=== PATIENT | female | born 1975 | race Two or more races ===

== ENCOUNTER 2019-05-20 14:48 | Emergency (ER) | payer OTHER ==
[~2019-05-20] VITALS: Ht 170.2 cm; Wt 77.1 kg
== END 2019-05-20 15:55 | disposition home or self-care (01) ==
LOC: ER 14:48
DX: J03.90 Acute tonsillitis, unspecified (principal)

== ENCOUNTER 2023-12-31 11:19 | Emergency (ER) | payer OTHER ==
[~2023-12-31] VITALS: Ht 162.6 cm; Wt 80.7 kg
[2023-12-31] MEDS ORDERED: KETOROLAC TROMETHAMINE 30 MG VIAL IM STA (12:30)
[2023-12-31] MEDS ORDERED: KETOROLAC TROMETHAMINE 30 MG VIAL ONE (12:36)
[2023-12-31 12:40] LABS: HEMATOCRIT 42.2 % (36.0-45.00); HEMOGLOBIN 14.4 g/dL (12.0-15.00); MEAN CORPUSCULAR HGB CONC 34.1 g/dl (32.0-36.0); PLATELET COUNT 259 K/uL (150-450); RED BLOOD COUNT 4.48 M/uL (4.00-6.00); RED CELL DISTRIBUTION WIDTH 13.3 % (11.5-14.5)
[2023-12-31 13:22] LABS: ALBUMIN 3.7 gm/dL (3.4-5.0); BILIRUBIN TOTAL 0.52 mg/dL (0.3-1.2); CALCIUM 9.2 mg/dL (8.5-10.1); CREATININE SERUM 0.78 mg/dL (0.55-1.02); GFR 78.5; GLOBULINA 4.1 G/DL (2.4-3.5); POTASSIUM 3.66 mEq/L (3.5-5.1); TOTAL PROTEIN 7.8 gm/dL (6.4-8.2)
[2023-12-31] MEDS ORDERED: 0.9 % SODIUM CHLORIDE 500 ML IV STA (13:33)
[2023-12-31] MEDS ORDERED: MUCINEX DM ER1 EACH PO (14:21)
== END 2023-12-31 14:56 | disposition home or self-care (01) ==
LOC: ER 11:20
PROVIDERS: General Practice
DX: G93.31 Postviral fatigue syndrome (principal); R53.81 Other malaise